=== PATIENT | female | born 1990 | race Two or more races ===

== ENCOUNTER 2024-06-17 16:07 | Emergency (ER) | payer MEDICAID, SELFPAY ==
[2024-06-17 16:54] VITALS: BP 145/85; PULSE 87; RESP 18; TEMP 36.8; O2SAT 98
--- NOTE | 2024-06-17 16:55 | XR_ITS ---
Examination: CT brain head without contrast. 2-D sagittal coronal reconstructions Date and time of exam:June 17, 2024 7006 hours INDICATIONS: Headaches beginning 3 hours ago CTDI: vol (mGy):51.3 DLP: (mGycm):955 Technique: Multiple CT axial sections of the brain have been obtained, 5 mm slice thickness. Contrast has not been administered. 2-D sagittal, coronal reconstructions have been obtained Low dose protocols were performed. One or more of the following dose reduction techniques were used; automated exposure control, adjustment of the mA and/or KV according to patient size, use of iterative reconstruction technique. Findings: No significant ventricular enlargement. Intra-axial or extra-axial hemorrhage density is not seen. No mass effect or midline shift Basal cisterns are not remarkable. Fourth ventricle is midline. Cranial vault intact. Impression: Negative for acute hemorrhage, mass effect or midline shift Advise clinical correlation and follow-up accordingly
--- NOTE | 2024-06-17 16:56 | PD.EDRME ---
Rapid Medical Screening Exam RME Arrival date/time: 06/17/24 16:07 34-year-old female presents to the Emergency Department for complaint of headache. Patient symptoms ongoing x 4 days Chief Complaint: Headache Time Seen by Provider: 06/17/24 16:14 Vital signs: Vital Signs Temperature 98.3 F 06/17/24 16:54 Pulse Rate 87 06/17/24 16:54 Respiratory Rate 18 06/17/24 16:54 Blood Pressure 145/85 H 06/17/24 16:54 Pulse Oximetry (%) 98 06/17/24 16:54 Oxygen Delivery Method Room Air 06/17/24 16:54
[2024-06-17] MEDS: DiphenhydrAMINE 25 MG CAPSULE PO (17:03)
[2024-06-17] MEDS: METOCLOPRAMIDE INJ 5 MG/ML VIAL 2 ML 10 MG IM (17:03)
[2024-06-17] MEDS: HYDROcodone/APAP 5/325 TABLET 1 TAB PO (17:03)
[2024-06-17 18:09] LABS: Basophils % (Auto) 0 % (0-2.5); Eosinophils % (Auto) 0 % (0-10); Hematocrit 38.5 % (36.0-46.0); Hemoglobin 13.1 g/dL (12.0-16.0); Immature Granulocytes % (Auto) 0 % (0-0); Immature Granulocytes Auto 0.02 Thou/mm3 (0.00-0.00); Lymphocytes # (Auto) 1.5 Thou/mm3 (1.0-4.8); Lymphocytes % (Auto) 17 % (10-50); Mean Corpuscular Hemoglobin 29.8 pg (25.0-35.0); Mean Corpuscular Volume 88 fL (80-100); Monocytes # (Auto) 0.6 Thou/mm3 (0.0-0.8); Monocytes % (Auto) 7 % (0-12); Neutrophils # (Auto) 6.9 Thou/mm3 (1.8-7.7); Neutrophils % (Auto) 76 % (37-80); Nucleated Red Blood Cell % 0 /100 WBC (0); Platelet Count 310 Thou/mm3 (140-440); RDW Standard Deviation 38.9 fL (36.4-46.3); White Blood Count 9.1 Thou/mm3 (3.6-11.0)
[2024-06-17 18:27] LABS: Alanine Aminotransferase 29 U/L (10-49); Albumin, Serum 4.7 gm/dL (3.5-5.0); Albumin/Globulin Ratio 1.5 (1.2-2.2); Alkaline Phosphatase 70 U/L (46-116); Anion Gap 9 (7-16); Aspartate Amino Transferase 25 U/L (0-34); BUN/Creatinine Ratio 16 Ratio (12-20); Bilirubin,Total 0.5 mg/dL (0.3-1.2); Blood Urea Nitrogen 13 mg/dL (9-23); Calcium 9.5 mg/dL (8.3-10.6); Calcium (Corrected) 9.5 mg/dL (8.5-10.1); Carbon Dioxide 24.3 mMol/L (20.0-31.0); Chloride 107 mMol/L (98-107); Creatinine (Component) 0.8 mg/dL (0.6-1.3); Globulin 3.1 gm/dL (2.3-3.5); Glucose 136 mg/dL (74-106); Osmolality,Calculated 281 (275-295); Potassium 4.4 mMol/L (3.4-5.1); Sodium 140 mMol/L (136-145); Total Protein 7.8 gm/dL (5.7-8.2); eGFR > 60 See Note
[2024-06-17 18:48] LABS: HCG,Qualitative Serum Negative
--- NOTE | 2024-06-28 14:26 | PD.EDHA ---
ED Headache RME/HPI General Chief Complaint: Headache Stated Complaint: RAMOS X3 HRS Time Seen by Provider: 06/17/24 16:14 Source: patient, RN notes reviewed and old records reviewed Arrival date/time: 06/17/24 16:07 Mode of arrival: ambulatory Limitations: no limitations RME / HPI RME / HPI Narrative: 34yof presents to ED for 4-day history of headache. Patient c/o aching, throbbing frontal headache, sensitive to light. Mild nausea. No fever, congestion, vision changes, dizziness or neck pain reported. Patient took advil at 1500 today with little relief. Related Data Home Medications ?Medication ?Instructions ?Recorded ?Confirmed ferrous sulfate 325 mg (65 mg 1 mg PO 1XD 01/17/22 01/17/22 iron) tablet,delayed release vit no.95-ferrous 1 tab PO 1XD 01/17/22 01/17/22 fumarate 28 mg-folic acid 800 mcg tablet () Previous Rx's ?Medication ?Instructions ?Recorded acetaminophen 500 mg tablet 1,000 mg (2 x 500 mg) PO Q6H PRN 06/17/24 (Tylenol Extra Strength) pain #30 tabs ibuprofen 600 mg tablet 600 mg PO Q6H PRN pain #30 tabs 06/17/24 ondansetron 4 mg disintegrating 4 mg PO Q6H PRN nausea and 06/17/24 tablet vomiting #10 tabs Allergies Allergy/AdvReac Type Severity Reaction Status Date / Time No Known Allergies Allergy Verified 04/15/23 21:05 Review of Systems Review of Systems Systems Reviewed: All systems reviewed, normal except as documented Constitutional Constitutional: Denies fever(s) and Reports headache(s) Eyes Eyes: Denies blurry vision ENT Ears, Nose, Mouth, and Throat: Denies dizziness, Reports headache(s), Denies nasal congestion and Denies neck pain Gastrointestinal Gastrointestinal: Reports nausea and Denies vomiting Musculoskeletal Musculoskeletal: Denies neck pain Neurologic Neurologic: Denies dizziness and Reports headache(s) Past Medical History Past Medical History HEMATOLOGIC: Positive Anemia Surgical History SURGICAL: Positive Section (2015) Social History SMOKING STATUS: Former smoker SUBSTANCE USE: does not use ALCOHOL: Never ED Exam General Limitations: Present no limitations General appearance: Present alert and in no apparent distress Head Head exam: Present atraumatic and normocephalic Eye Eye exam: Present normal appearance, PERRL and EOMI ENT ENT exam: Present normal exam and mucous membranes moist Neck Neck exam: Present normal inspection and full ROM; Absent tenderness Chest Chest inspection: Present normal inspection and symmetric chest wall rise Respiratory Respiratory exam: Present normal lung sounds bilaterally; Absent respiratory distress Cardiovascular Cardiovascular exam: Present regular rate and normal rhythm Extremities Exam Extremities exam: Present normal inspection and full ROM Back Exam Back exam: Present normal inspection and full ROM Neurological Exam Neurological exam: Present alert, oriented X3, CN II-XII intact and normal gait; Absent motor sensory deficit Psychiatric Psychiatric exam: Present normal affect and normal mood Skin Skin exam: Present warm, dry, intact and normal color Course Quality Measures none Orders Category Date Time Status CT head/brain wo con Stat Exams 06/17/24 16:55 Completed CBC Stat Lab 06/17/24 17:36 Completed Comprehensive Metabolic Panel Stat Lab 06/17/24 17:36 Completed HCG,Qualitative Serum Stat Lab 06/17/24 17:36 Completed DiphenhydrAMINE [Benadryl] Med 06/17/24 16:55 Discontinued 25 mg PO X1 ONE HYDROcodone*/APAP 5/325 [Pella 5/325] Med 06/17/24 16:55 Discontinued 1 tab PO X1 ONE Metoclopramide Inj [Reglan Inj] Med 06/17/24 16:55 Discontinued 10 mg IM X1 ONE Vital Signs Vital signs: Vital Signs Temperature 98.3 F 06/17/24 16:54 Pulse Rate 87 06/17/24 16:54 Respiratory Rate 18 06/17/24 16:54 Blood Pressure 145/85 H 06/17/24 16:54 Pulse Oximetry (%) 98 06/17/24 16:54 Oxygen Delivery Method Room Air 06/17/24 16:54 Headache MDM Narrative MDM Narrative:: 34yof presents to ED for 4-day history of headache. Patient c/o aching, throbbing frontal headache, sensitive to light. Mild nausea. No fever, congestion, vision changes, dizziness or neck pain reported. Patient took advil at 1500 today with little relief. Patient reassessed. RAMOS improved after medications administered. Patient is neurologically intact, vitals are stable. Encouraged rest, adequate fluids, symptomatic treatment prn. Stable for dc, RTED precautions given. Patient data External records reviewed:: [facility] previous records (04/16/23 ED visit for dental abscess) Clinical information provided by:: patient Social determinants that could affect healthcare access:: other (specify) (poor access to healthcare) Patient has the following chronic illnesses:: anemia How is presenting disease/condition affected by chronic disease/condition?: uneffected by Evaluation data The following diagnostics were reviewed and interpreted by me:: lab results and radiology exam(s) Lab and/or radiology exams considered but not ordered:: none Interpretation Summary: CT head: no ICH per my read No leukocytosis No anemia Medications / Prescriptions Medications or Prescriptions considered but not ordered:: none Medication administrations:: Medication Administration History Discontinued Medications Hydrocodone Bitart/Acetaminophen (Hydrocodone/Apap 5/325 Tablet) 1 tab PO X1 ONE Stop: 06/17/24 16:56 Last Admin: 06/17/24 17:03 Dose: 1 tab Documented By: MARILEE Diphenhydramine HCl (Diphenhydramine 25 Mg Capsule) 25 mg PO X1 ONE Stop: 06/17/24 16:56 Last Admin: 06/17/24 17:03 Dose: 25 mg Documented By: MARILEE Metoclopramide HCl (Metoclopramide Inj 5 Mg/Ml Vial 2 Ml) 10 mg IM X1 ONE; Protocol Stop: 06/17/24 16:56 Last Admin: 06/17/24 17:03 Dose: 10 mg Documented By: MARILEE above medications administered in ED Consultations Consultation(s) initiated? (list below): No Diagnosis Differential diagnosis headache: migraine, tension headache, subarachnoid hemorrhage, meningitis and sinusitis Most likely diagnosis given after review of the tests above:: headache Admission Indicated Admission indicated?: not indicated Admission Request Was there a request for admission?: No Disposition Plan Disposition Plan: Discharge Discharge Attestation Discharge Attestation: The patient and all family members were given an opportunity to ask questions and understood the discharge instructions. Discharge instructions specifically effects, indications for sooner follow up or return to the emergency department, and the expected course of current diagnosis. Patient condition: Stable Discharge Plan Plan Patient Disposition: HOME (Self Care) Patient condition on transfer: Stable Prescriptions/Referrals Prescriptions/Med Rec: New ibuprofen 600 mg tablet 600 mg PO Q6H PRN (Reason: pain) Qty: 30 0RF ondansetron 4 mg tablet,disintegrating 4 mg PO Q6H PRN (Reason: nausea and vomiting) Qty: 10 0RF acetaminophen [Tylenol Extra Strength] 500 mg tablet 1,000 mg PO Q6H PRN (Reason: pain) Qty: 30 0RF No Action ferrous sulfate 325 mg (65 mg iron) tablet,delayed release (DR/EC) 1 mg PO 1XD Patient Comments: TAKE 1 TABLET BY MOUTH EVERY DAY FOR 90 DAYS PNV cmb#95-ferrous fumarate-FA [] 28 mg iron- 800 mcg tablet 1 tab PO 1XD Patient Comments: TAKE 1 TABLET BY MOUTH EVERY DAY FOR 90 DAYS Referrals: Rojelio Drew MD [Primary Care Provider] - In 1 week Problem List Clinical Impression: Headache Patient/Caregiver Discharge Instructions Education Materials: Self-Care for Headaches Additional Instructions: Make sure to get plenty of rest. Drink plenty of fluids. Follow-up with your PCP if symptoms persist or worsen. Print Language: Pashto Stand Alone Forms: [facility] Award Info., Patient Portal Info Letter PA/DIRECTOR OF CARDIAC REHABILITATION Supervising Physician PA/DIRECTOR OF CARDIAC REHABILITATION Supervising Physician: Marcelo
== END 2024-06-17 20:34 | disposition home or self-care (01) ==
PROVIDERS: Nurse Practitioner Primary Care; Emergency Provider Emergency Medicine; PCP Family Medicine
DX: R51.9 Headache, unspecified (principal); R11.0 Nausea
CPT/HCPCS: 36415; 70450; 80053; 83690; 84703; 85025; 96372; 99284; J2765; A9270